=== PATIENT | female | born 1960 | race Caucasian/White ===

== ENCOUNTER → 2016-11-21 | Day surgery (SDC) | payer OTHER, MEDICAID ==
[~2016-11-21] VITALS: Ht 177.8 cm; Wt 90.7 kg
[2016-11-21] VITALS (7 sets, daily range): BP systolic 156–172; BP diastolic 58–96
[~2016-11-21] MED LIST: AREDS 2 PO; CLINDAMYCIN HC300 MG PO; IBU-8800 MG PO; LIDEX 0.05% GEL60 GM PO; LIDEX0.05% T; MOTRIN800 MG PO; NKHM; PHENERGAN25 M1 PO; PREDNICOT20 MG PO
--- NOTE | ~2016-11-21 | O ---
[place], [place] OPERATIVE NOTE NAME: KELVIN CISNEROS [facility] #: [id number] UNIT #: [id number] ROOM: DOCTOR: HOMAR CROCKETT MD BIRTHDATE: [birth year] DOS: 11/21/2016 PREOPERATIVE DIAGNOSIS: Cataract, right eye. POSTOPERATIVE DIAGNOSIS: Cataract, right eye. OPERATION: Extracapsular cataract extraction by phacoemulsification with posterior chamber intraocular lens implantation, right eye. ANESTHESIA: Monitored standby. OPERATIVE FINDINGS AND PROCEDURE: 2% Xylocaine topical anesthetic gel was applied to the eye in the preop area. The patient was taken to the operating room and prepped and draped in the standard fashion for sterile intraocular surgery. A time out procedure was performed verifying correct patient, correct site and corrects lens with Kylah Crockett M.D. The operating microscope was swung into position and the lid speculum was inserted. Using a Neli paracentesis blade, a paracentesis was made through clear cornea. Viscoelastic was used to fill the anterior chamber. Using a metal keratome a 2.4 mm self-sealing clear corneal cataract incision was made temporally at the limbus. Using a pre-bent 25 gauge cystotome needle, a standard continuous curvilinear capsulorrhexis was performed. The anterior capsule was removed with forceps. The lens nucleus was hydrodissected and phacoemulsified in the posterior chamber. Cortical material was removed with the irrigation aspiration hand piece and the posterior capsule was then polished with a curet under irrigation. The posterior chamber and capsular bag were filled with viscoelastic. A posterior chamber intraocular lens manufactured by: [employer], Model #[id number], and 19.5 diopters in strength were then inserted into the posterior chamber and within the capsular bag using the lens cartridge and injector system. Viscoelastic was removed using the irrigation aspiration handpiece. The anterior chamber was filled with balanced salt solution through the paracentesis. Both the paracentesis site and cataract incisions were hydrated with BSS and verified to be water-tight and self-sealing. Cefuroxime 1 mg/0.1 mL was injected into the anterior chamber through the paracentesis site. The incision checked to be water-tight using a Weck-Megan sponge. The integrity of the cataract wound and ocular tension were checked. Lid speculum and drapes were removed. The patient was transferred from the operating room to the recovery room in satisfactory condition. [place], [place] OPERATIVE NOTE NAME: KELVIN CISNEROS UNIT #: [id number] ROOM: DOCTOR: HOMAR CROCKETT MD BIRTHDATE: [birth year] HOMAR CROCKETT MD CM:OPRECORD:OPERATIVE NOTE [id number] HOMAR CROCKETT MD 11/21/16 162 interface
== END | disposition home or self-care (01) ==
LOC: SDC 11-16 13:15
DX: H26.9 Unspecified cataract (principal); I10 Essential (primary) hypertension

== ENCOUNTER → 2017-03-27 | Day surgery (SDC) | payer OTHER, MEDICAID ==
[~2017-03-27] VITALS: Ht 177.8 cm; Wt 90.7 kg
--- NOTE | ~2017-03-27 | O ---
[place], [place] OPERATIVE NOTE NAME: KELVIN CISNEROS [facility] #: [id number] UNIT #: [id number] ROOM: DOCTOR: HOMAR CROCKETT MD BIRTHDATE: [birth year] DOS: 03/27/2017 PREOPERATIVE DIAGNOSIS: Cataract, left eye. POSTOPERATIVE DIAGNOSIS: Cataract, left eye. OPERATION: Extracapsular cataract extraction by phacoemulsification with posterior chamber intraocular lens implantation, left eye. ANESTHESIA: Monitored standby. OPERATIVE FINDINGS AND PROCEDURE: 2% Xylocaine topical anesthetic gel was applied to the eye in the preop area. The patient was taken to the operating room and prepped and draped in the standard fashion for sterile intraocular surgery. A time out procedure was performed verifying correct patient, correct site and corrects lens with Kylah Crockett M.D. The operating microscope was swung into position and the lid speculum was inserted. Using a Neli paracentesis blade, a paracentesis was made through clear cornea. Viscoelastic was used to fill the anterior chamber. Using a metal keratome a 2.4 mm self-sealing clear corneal cataract incision was made temporally at the limbus. Using a pre-bent 25 gauge cystotome needle, a standard continuous curvilinear capsulorrhexis was performed. The anterior capsule was removed with forceps. The lens nucleus was hydrodissected and phacoemulsified in the posterior chamber. Cortical material was removed with the irrigation aspiration hand piece and the posterior capsule was then polished with a curet under irrigation. The posterior chamber and capsular bag were filled with viscoelastic. A posterior chamber intraocular lens manufactured by: [employer], Model #[id number], and 19.5 diopters in strength were then inserted into the posterior chamber and within the capsular bag using the lens cartridge and injector system. Viscoelastic was removed using the irrigation aspiration handpiece. The anterior chamber was filled with balanced salt solution through the paracentesis. Both the paracentesis site and cataract incisions were hydrated with BSS and verified to be water-tight and self-sealing. Cefuroxime 1 mg/0.1 mL was injected into the anterior chamber through the paracentesis site. The incision checked to be water-tight using a Weck-Megan sponge. The integrity of the cataract wound and ocular tension were checked. Lid speculum and drapes were removed. The patient was transferred from the operating room to the recovery room in satisfactory condition. [place], [place] OPERATIVE NOTE NAME: KELVIN CISNEROS UNIT #: [id number] ROOM: DOCTOR: HOMAR CROCKETT MD BIRTHDATE: [birth year] HOMAR CROCKETT MD CM:OPRECORD:OPERATIVE NOTE [id number] HOMAR CROCKETT MD 03/27/17 1755 interface
[2017-03-27 12:34] VITALS: BP 150/74
[2017-03-27 14:17] VITALS: BP 157/89
[2017-03-27 14:32] VITALS: BP 160/88
[2017-03-27 14:47] VITALS: BP 157/82
== END ==
LOC: SDC 03-22 10:15
DX: H26.9 Unspecified cataract (principal); I10 Essential (primary) hypertension; Z98.51 Tubal ligation status

== ENCOUNTER 2024-12-01 23:21 | Emergency (ER) | payer BC ==
[~2024-12-01] VITALS: Ht 177.8 cm; Wt 102.1 kg
[2024-12-01] MEDS ORDERED: METHOCARBAMOL 500 MG TAB PO ONE (23:40)
[2024-12-01] MEDS ORDERED: METHOCARBAMOL750 M1 PO (23:45)
[2024-12-01] MEDS ORDERED: NAPROXEN250 MG PO (23:45)
== END 2024-12-02 00:07 | disposition home or self-care (01) ==
LOC: ED 23:21
DX: S39.011A Strain of muscle, fascia and tendon of abdomen, initial encounter (principal); M79.651 Pain in right thigh; X50.0XXA Overexertion from strenuous movement or load, initial encounter; Y93.89 Activity, other specified; Y92.89 Other specified places as the place of occurrence of the external cause; Y99.8 Other external cause status

== ENCOUNTER → 2024-12-07 | Outpatient (CLI) | payer BC ==
[~2024-12-07] MED LIST changes: +METHOCARBAMOL750 M1 PO; +NAPROXEN250 MG PO
== END | disposition home or self-care (01) ==
LOC: ORTHO 00:26
PROVIDERS: ATTEND Orthopaedic Surgery
DX: M17.0 Bilateral primary osteoarthritis of knee (principal); M25.851 Other specified joint disorders, right hip; R10.31 Right lower quadrant pain

== ENCOUNTER → 2024-12-10 | Outpatient (CLI) | payer BC | END | disposition home or self-care (01) | LOC: MRI 09:54 | PROVIDERS: ATTEND Orthopaedic Surgery | DX: M84.351A Stress fracture, right femur, initial encounter for fracture (principal); M16.11 Unilateral primary osteoarthritis, right hip; M71.551 Other bursitis, not elsewhere classified, right hip ==

== ENCOUNTER → 2024-12-21 | Outpatient (CLI) | payer BC | END | disposition home or self-care (01) | LOC: RAD 09:00 | PROVIDERS: ATTEND Orthopaedic Surgery | DX: M80.0B1A Age-related osteoporosis with current pathological fracture, right pelvis, initial encounter for fracture (principal) ==

== ENCOUNTER → 2024-12-30 | Outpatient (CLI) | payer BC ==
[2024-12-30 12:08] LABS: BUN 16 mg/dl (9-23); SGPT/ALT 14 U/L (5-49)
== END | disposition home or self-care (01) ==
LOC: LAB 10:25
PROVIDERS: ATTEND Orthopaedic Surgery
DX: M81.0 Age-related osteoporosis without current pathological fracture (principal)